=== PATIENT | male | born 1960 | race Caucasian/White ===

== ENCOUNTER → 2018-06-18 | Day surgery (SDC) | payer OTHER ==
[~2018-06-18] MED LIST: LIPITOR20 MG; SYNTHROID125 MCG
== END | disposition home or self-care (01) ==
LOC: ADM 06-15 07:15 → CIR.AMB 06:30 → EDSEX 07:15 → CIR.AMB 07:15
DX: M75.01 Adhesive capsulitis of right shoulder (principal)

== ENCOUNTER 2024-10-14 08:36 | Day surgery (SDC) | payer OTHER ==
[2024-10-07 08:06] VITALS: BP 133/82
[2024-10-07 08:29] LABS: URINE APPEARANCE Clear; URINE BILIRRUBIN Negative (NEGATIVE); URINE BLOOD Negative; URINE COLOR Yellow; URINE GLUCOSE Negative (NEGATIVE); URINE KETONE Negative (NEGATIVE); URINE LEUKOCYTE Negative; URINE NITRATE Negative; URINE PROTEIN Negative (NEGATIVE); URINE UROBILINOGEN 0.2 E.U./dl
[2024-10-07 08:34] LABS: URINE BACTERIA 8.5 uL (0.0-1933); URINE WBC 12.7 uL (0.0-23.2)
[2024-10-07 08:46] LABS: INR 1.02; PARTIAL THROMBOPLASTIN TIME 27.9 SECONDS (22.0-34.0); PROTHROMBIN TIME 11.1 SECONDS (9.0-11.5)
[2024-10-07 08:47] LABS: URINE EPITHELIAL CELLS 0.7 uL (0.0-38.8)
[2024-10-07 08:52] LABS: ALBUMIN 3.7 gm/dL (3.4-5.0); BILIRUBIN TOTAL 0.6 mg/dL (0.3-1.2); CALCIUM 8.9 mg/dL (8.5-10.1); CREATININE SERUM 1.39 mg/dL (0.70-1.30); GFR 51.61; GLOBULINA 3.3 G/DL (2.4-3.5); HEMATOCRIT 42.3 % (39.0-48.0); HEMOGLOBIN 14.5 g/dL (13-16.00); MEAN CORPUSCULAR HEMOGLOBIN 30.9 pg (27.00-32.0); MEAN CORPUSCULAR HGB CONC 34.3 g/dl (32.0-36.0); PLATELET COUNT 215 K/uL (150-450); POTASSIUM 4.97 mEq/L (3.5-5.1); RED BLOOD COUNT 4.69 M/uL (4.00-6.00); RED CELL DISTRIBUTION WIDTH 14.7 % (11.5-14.5)
[~2024-10-14] VITALS: Ht 182.9 cm; Wt 103.9 kg
[~2024-10-14 08:36] MED LIST changes: +BUSPIRONE HCL10 MG PO; +GABAPENTIN300 MG; +ROSUVASTATIN CA10 MG PO; +XANAX0.25 MG PO
[2024-10-14] MEDS ORDERED: BUPIVACAINE HCL/PF 0.25% 50 ML VIAL IJ ONE (13:00)
[2024-10-14] MEDS ORDERED: ISOPROPYL ALCOHOL 30 ML OUNCE TOP ONE (13:00)
[2024-10-14] MEDS ORDERED: CEFAZOLIN SODIUM 1,000 MG VIAL IV ONE (13:00)
[2024-10-14] MEDS ORDERED: SUGAMMADEX SODIUM 200 MG/2 ML VIAL IV ONE ×2 (13:15→13:45)
[2024-10-14] MEDS ORDERED: MORPHINE SULFATE 4 MG/ML VIAL IV ONE ×2 (14:15→14:45)
== END 2024-10-14 15:45 | disposition home or self-care (01) ==
LOC: CIR.AMB 08:36
PROVIDERS: ATTEND Orthopaedic Surgery
DX: M66.231 Spontaneous rupture of extensor tendons, right forearm (principal); M25.421 Effusion, right elbow; M67.821 Other specified disorders of synovium, right elbow; M24.821 Other specific joint derangements of right elbow, not elsewhere classified; G56.21 Lesion of ulnar nerve, right upper limb; G47.33 Obstructive sleep apnea (adult) (pediatric); E03.8 Other specified hypothyroidism; M19.90 Unspecified osteoarthritis, unspecified site; H91.90 Unspecified hearing loss, unspecified ear